=== PATIENT | female | born 1945 | race Caucasian/White ===

== ENCOUNTER 2022-06-27 10:33 | Emergency (ER) | payer BC, MEDICARE ==
[2022-06-27] MEDS ORDERED: Cyclobenzaprine 10 MG Tab PO ONE (11:28)
[2022-06-27] MEDS ORDERED: Gabapentin 300 MG Cap PO ONE (12:08)
== END 2022-06-27 13:27 | disposition home or self-care (01) ==
LOC: FB.ED 10:33
DX: M54.10 Radiculopathy, site unspecified (principal); Z79.899 Other long term (current) drug therapy
CPT/HCPCS: 36415; 85379; 99282; 99283; A9270-GY